=== PATIENT | male | born 1995 | race Two or more races ===

== ENCOUNTER 2021-05-10 15:43 | Outpatient (REF) | payer OTHER, SELFPAY | END 2021-05-10 15:44 | disposition home or self-care (01) | LOC: HO.LAB 15:43 | PROVIDERS: Visit Provider Internal Medicine | DX: Z20.822 Contact with and (suspected) exposure to COVID-19 (principal) | CPT/HCPCS: C9803; U0003; U0005 ==

== ENCOUNTER 2023-04-21 13:50 | Emergency (ER) | payer OTHER, SELFPAY ==
[2023-04-21 14:21] VITALS: BP 118/76; PULSE 73; RESP 18; TEMP 37.2; O2SAT 100; BMI 23.6
--- NOTE | 2023-04-21 14:24 | ED.EYEPROB ---
HPI - Eye Problem General Chief complaint: Eye Problems Stated complaint: r eye swollen Time Seen by Provider: 04/21/23 14:23 Source: patient Mode of arrival: ambulatory Limitations: no limitations History of Present Illness HPI Narrative: 27-year-old male presents to the ER for evaluation of right upper eyelid pain and swelling, worsening for the last 3 days. He states initially it felt like some irritation and something may be in the eye, last night he started with swollen right upper eyelid. He woke up today with some drainage and increased swelling of the eyelid. He reports some blurry vision when he had the discharge in the eye. No eye pain. He is not diabetic. He does not wear any glasses or contacts. chief complaint: eye redness and other (Upper eyelid pain and swelling) Onset (ago): day(s) Onset description: gradual Duration: constant Location: right eye Eye Symptoms: redness, discharge, blurry vision and other (Swelling) Place: home Mechanism: none Severity: moderate If Pain, Quality: aching Treatments Prior to Arrival: none Related Data Patient tetanus UTD: Yes Previous Rx's Medication Instructions Recorded erythromycin 5 mg/gram (0.5 %) eye 0.5 inch ophthalmic (eye) BID #3.5 04/21/23 ointment grams Allergies Allergy/AdvReac Type Severity Reaction Status Date / Time sulfamethoxazole Allergy Severe THRUSH, Unverified 04/27/20 16:30 [From BACTRIM] ANGIOEDEMA trimethoprim [From BACTRIM] Allergy Severe THRUSH, Unverified 04/27/20 16:30 ANGIOEDEMA cephalexin [From KEFLEX] AdvReac Intermediate TONGUE Unverified 04/27/20 16:30 SWELLING Review of Systems Review of Systems: Yes all other systems are reviewed and are negative [facility] Social History Social History Advance Directives: No Advance Directives Information Provided: Yes Physical Exam Vital Signs: Vital Signs: Last Vital Signs Temp 98.9 F 04/21/23 14:21 Pulse 73 04/21/23 14:21 Resp 18 04/21/23 14:21 BP 118/76 04/21/23 14:21 Pulse Ox 100 04/21/23 14:21 O2 Del Method Room Air 04/21/23 14:21 BMI result Body Mass Index 23.6 Appearance: Alert. Oriented X3. No acute distress. HEENT: Normocephalic, face is symmetric. Normal inspection of left eye and surrounding structures. Right upper eyelid with moderate swelling and erythema, visible internal hordeolum with inversion of the eye. Pupils equal out round and reactive to light. Extraocular muscles are intact CVS: Normal heart rate and rhythm. Pulses normal. Respiratory: No respiratory distress. Skin: Skin warm and dry. Normal skin color. Normal skin turgor. No rashes. Extremities: Normal inspection, normal range of motion x4, no joint swelling. Neuro: Oriented X 3. No motor deficit. No sensory deficit. Medical Decision Making Medical Decision Making [facility] Narrative: 27-year-old male presents to the ER for evaluation of right upper eyelid pain and swelling that has been progressing for the last 3 days. Exam is consistent with hordeolum. Will treat accordingly. Return precautions discussed. Post discharge home. Differential Diagnosis Differential Diagnoses: The differential diagnosis associated with the presentation includes External hordeolum, internal hordeolum, too lazy on, cellulitis Prescription Management I considered prescription management with: Pain Medication and Antibiotic Critical Care Time Critical Care Time Critical Care Time: No Discharge Plan Discharge Clinical Impression: Hordeolum Patient Disposition: Home, Self-Care Instructions: Mary (ED) Additional Instructions: use the prescribed antibiotic ointment 2 times per day for 1 week use warm compresses to the eye several times per day If you develop new or worsening symptoms call 911 or come back to the ER for further evaluation. Prescriptions: New erythromycin 5 mg/gram (0.5 %) ointment 0.5 inch ophthalmic (eye) BID Qty: 3.5 1RF Interventions: ED Discharge Assessment Last Done: 04/21/23 14:39
== END 2023-04-21 14:42 | disposition home or self-care (01) ==
LOC: HO.ED 14:32
PROVIDERS: Emergency Provider Emergency Medicine; PCP Internal Medicine
DX: H00.011 Hordeolum externum right upper eyelid (principal); H57.11 Ocular pain, right eye
CPT/HCPCS: 99282; 99283

== ENCOUNTER 2023-07-16 17:53 | Emergency (ER) | payer OTHER, SELFPAY ==
--- NOTE | ~2023-07-16 | CT_ITS ---
EXAMINATION: CT CHEST WITHOUT CONTRAST CLINICAL INFORMATION: Epigastric pain, chest lump. COMPARISON: Chest radiograph 09/15/2010. TECHNIQUE: Multidetector volumetric CT imaging of the chest was done. Axial MIP volume rendering provided. Sagittal and coronal reformatted images were obtained. This CT examination was performed using dose optimization techniques as appropriate, variously including the following: *Automated exposure control *Adjustment of mA and/or kV according to patient size (this includes techniques or standardized protocols for targeted exams where dose is matched to indication/reason for exam; i.e. extremities or head) *Use of iterative reconstruction technique DLP: 214 mGy-cm FINDINGS: LUNGS: No focal consolidation or significant groundglass disease. Central airways are patent. Small calcified granuloma in the inferior right upper lobe (5:235). MEDIASTINUM: Residual thymic tissue. Normal heart size. No pericardial effusion. No mediastinal lymphadenopathy. Evaluation of the hilar structures is limited in the absence of IV contrast. Normal appearance of the thyroid gland. CORONARY ARTERY CALCIFICATION: None visualized on this study. PLEURA: No pleural effusion or pneumothorax. AXILLA: Mild symmetric gynecomastia. Fairly symmetric, likely reactive bilateral axillary lymph nodes measuring up to 1.2 cm. UPPER ABDOMEN: Nonspecific gastric distention with heterogeneous debris. OSSEOUS STRUCTURES: Vertebra plana at T4, uncertain etiology with no surrounding fat stranding or hematoma, new compared to a prior chest radiograph from 09/15/2010. CT/CT chest wo IV con IMPRESSION: 1. No focal consolidation or significant groundglass disease. 2. Nonspecific gastric distention with heterogeneous debris; differential considerations include postprandial state, gastro bezoar, gastroparesis or gastric outlet obstruction. 3. Vertebra plana at T4, uncertain etiology with no surrounding fat stranding or hematoma, new compared to a prior chest radiograph from 09/15/2010. 4. Trace bilateral symmetric gynecomastia.
[2023-07-16 18:38] VITALS: BP 126/81; PULSE 70; RESP 18; TEMP 36.9; O2SAT 100; BMI 24.0
--- NOTE | 2023-07-16 18:42 | ED.GENADULT ---
HPI - General Adult General Chief complaint: General Medical Stated complaint: lump in the middle of chest Time Seen by Provider: 07/16/23 19:42 Source: patient Mode of arrival: ambulatory Limitations: no limitations History of Present Illness HPI narrative: Patient is a 27-year-old male with history of asthma presenting to the emergency department with complaint of a lump to his diaphragm/lower sternum which he noted yesterday. Feels he notices it more with inspiration. He reports recent sore throat which has improved, denies cough. Denies fever/chills/body aches. Denies any night sweats or unintentional weight loss. Reports that he does smoke marijuana regularly. He denies fall or other injury to the area. MD complaint: sternal mass Onset (ago): day(s) Location: chest Radiation: non-radiation Severity: mild Quality: dull Pain Consistency: intermittent Relieving factors: none Exacerbating factors: none Associated symptoms: denies other symptoms Treatments prior to arrival: none Related Data Previous Rx's Medication Instructions Recorded erythromycin 5 mg/gram (0.5 %) eye 0.5 inch ophthalmic (eye) BID #3.5 04/21/23 ointment grams Allergies Allergy/AdvReac Type Severity Reaction Status Date / Time sulfamethoxazole Allergy Severe THRUSH, Verified 07/16/23 18:41 [From BACTRIM] ANGIOEDEMA trimethoprim [From BACTRIM] Allergy Severe THRUSH, Verified 07/16/23 18:41 ANGIOEDEMA cephalexin [From KEFLEX] AdvReac Intermediate TONGUE Verified 07/16/23 18:41 SWELLING Review of Systems Review of Systems: As per HPI. Yes all other systems are reviewed and are negative Constitutional: Constitutional: Reports as per HPI [facility] Social History Social History Advance Directives: No Advance Directives Information Provided: No Physical Exam ED Vital Signs: Vital Signs - 24 hr 07/16/23 18:38 07/16/23 21:36 Temperature 98.5 F Pulse Rate 70 68 Respiratory Rate 18 18 Blood Pressure 126/81 119/67 Pulse Oximetry 100 98 Oxygen Delivery Method Room Air Room Air BMI result Body Mass Index 24.0 Vital signs have been reviewed and appear to be correct. Blood pressure normal. Heart rate normal. Respiratory rate normal. Temperature normal. Oxygen saturation normal. Const General: cooperative, healthy appearing and no acute distress Orientation/consciousness: oriented to person, oriented to place, oriented to time and patient oriented x3 Limitations: no limitations HENMT Head: Yes normocephalic and Yes atraumatic Ears: external ears normal General nose exam: Normal external nose present Face and sinus: Yes face symmetric Mouth: oropharynx normal and moist mucous membranes Throat: Yes uvula midline Eyes Pupils: Equal, round and reactive pupils present Neck Neck: Yes normal visual inspection and Yes supple Lymphatic: no lymphadenopathy noted Chest Other: Prominent xyphoid process noted, no mass appreciated on exam, area nontender Chest palpation & inspection: normal inspection of the chest and normal palpation of entire chest wall Breast/axilla palpation: no axillary lymphadenopathy Resp Effort & Inspection: normal respiratory effort and able to speak in complete sentences Auscultation: clear to auscultation bilaterally Cardio Rate: regular rate Rhythm: regular rhythm Heart sounds: S1 normal heart sound present and S2 normal heart sound present GI Palpation (GI): Soft to palpation and nontender Auscultation: normoactive bowel sounds General: Yes no CVA tenderness Back/Spine/Pelvis Back: no CVA tenderness Skin General skin exam: elasticity normal and turgor normal Neuro General: oriented to person, oriented to place, oriented to time, patient oriented x3, moves all extremities, no focal motor deficits and CN's II-XI intact bilaterally Cranial nerves: Yes Equal, round and reactive pupils present Cognition (Neuro): normal cognition Extrem General: Yes full ROM, Yes no pedal edema and Yes no calf tenderness Psych Mental Status: mental status grossly normal Affect: normal affect Thought process: Normal thought process present Course Course Course Narrative: This is an RME: Additional HPI, ROS, PE not included below will be deferred to primary provider. This is a 27-year-old male presenting to the emergency department for evaluate wish in of lump in his epigastric area, he noticed this yesterday. No injury or trauma. Plan: Medical Decision Making Medical Decision Making MDM Narrative: Patient is a 27-year-old male with history of asthma presenting to the emergency department with complaint of a lump to his diaphragm/lower sternum which he noted yesterday. On exam patient is awake, A+Ox3, VS WNL, afebrile, normal neurological exam without focal deficits, physical exam findings as above. Given reported symptoms and physical exam findings, initial differential includes sternal mass, abscess, lymphadenopathy. Labs notable for leukopenia with mild anemia. Monospot negative. CT notable for nonspecific gastric distention, vertebra plana at T4, new from 2010. Patient states he ate immediately prior to coming in to the ED. My interpretation is in agreement with the radiologist's interpretation. Patient updated on results. Will refer to heme/onc for further evaluation of abnormal labs and symptoms. Instructed patient to follow up with primary care provider as well. Return precautions discussed at bedside. Patient verbalized understanding of and agreement with plan. Differential Diagnosis Differential Diagnoses: The differential diagnosis associated with the presentation includes As per [facility]. Lab Data [facility] Lab Attestation statement: I reviewed the patient's lab results. As per [facility] 07/16/23 19:39 07/16/23 19:39 Labs: Lab Results 07/16/23 07/16/23 Range/Units 19:39 21:42 WBC 4.1 L (4.8-10.8) X10*3/uL RBC 4.97 (4.60-5.80) X10*6/uL Hgb 13.0 L (14.0-18.0) g/dl Hct 41.5 L (42.0-52.0) % MCV 83.5 (80.0-98.0) fL MCH 26.2 L (27.0-33.0) pg MCHC 31.3 (31.0-36.0) g/dl RDW 14.6 (11.0-16.0) % Plt Count 237 (160-400) X10*3/uL MPV 10.3 (9.4-12.4) fL Immature Gran % (Auto) 0.2 (0.0-0.4) % Neut % (Auto) 32.9 L (45-73) % Lymph % (Auto) 53.8 H (20-40) % Perkins % (Auto) 11.2 H (2-11) % Eos % (Auto) 1.7 (0-4) % Baso % (Auto) 0.2 (0-2) % Lymph # (Auto) 2.2 (1.2-4.9) X10*3/uL Perkins # (Auto) 0.5 (0.1-1.2) X10*3/uL Eos # (Auto) 0.1 (0.0-0.4) X10*3/uL Baso # (Auto) 0.0 (0.0-0.2) X10*3/uL Abs Immat Gran (auto) 0.01 (0.00-0.03) X10*3/uL Absolute Neuts (auto) 1.3 L (2.0-8.3) x10*3/uL Absolute Nucleated RBC 0.000 (0.0-0.012) X10*3/uL Nucleated RBC % (auto) 0.0 (0.0-0.2) /100WBC Smear Tech's Comments VERIFIED Sodium 141 (135-145) mmol/L Potassium 3.7 (3.3-5.1) mmol/L Chloride 104 (96-108) mmol/L Carbon Dioxide 30 H (22-29) mmol/L Anion Gap 11 L (12-20) BUN 11 (9-16) mg/dL Creatinine 0.91 (0.5-1.4) mg/dL Estim Creat Clear Calc 127.0 Estimated GFR > 60 Random Glucose 73 (60-115) mg/dL Calcium 9.2 (8.4-10.2) mg/dL Total Bilirubin 0.2 (0.0-1.0) mg/dL Direct Bilirubin < 0.2 (0.0-0.5) mg/dL AST 19 (5-37) U/L ALT 13 (0-40) U/L Alkaline Phosphatase 68 (39-117) U/L Total Protein 7.9 (6.5-8.0) g/dL Albumin 3.9 (3.5-5.0) g/dL Monoscreen Negative (Negative) Independent Interpretation I performed an independent interpretation of an: CT Scan Interpretation: No evidence of mass in area of concern Radiology Impression Discussion of test interpretation with radiology: I have reviewed the radiologist's reading. Radiologist Impression: CT/CT chest wo IV con IMPRESSION: 1. No focal consolidation or significant groundglass disease. 2. Nonspecific gastric distention with heterogeneous debris; differential considerations include postprandial state, gastro bezoar, gastroparesis or gastric outlet obstruction. 3. Vertebra plana at T4, uncertain etiology with no surrounding fat stranding or hematoma, new compared to a prior chest radiograph from 09/15/2010. 4. Trace bilateral symmetric gynecomastia. External Record Review External record reviewed: Inpatient record, Office record and Outpatient record Discharge Plan Discharge Clinical Impression: Leukopenia Patient Disposition: Home, Self-Care Additional Instructions: You were evaluated in the emergency department today for concern of a lump to your chest. Your CT scan did not show any evidence of a mass. Your white blood cell count today was low, as well as your neutrophil count. You are being referred to the flight operations specialist/oncologist for further evaluation of your labs/symptoms. Please call their office to schedule an appointment. Return to the emergency department if you develop fever, chest pain, difficulty breathing, unexplained weight loss, night sweats, or any other concerning symptoms. Prescriptions: No Action erythromycin 5 mg/gram (0.5 %) ointment 0.5 inch ophthalmic (eye) BID Qty: 3.5 1RF Referrals: Yuli Gould MD [Physician] -
[2023-07-16 19:45] LABS: Basophils Percent Auto 0.2 % (0-2); Eosinophils Absolute Auto 0.1 X10*3/uL (0.0-0.4); Eosinophils Percent Auto 1.7 % (0-4); Hematocrit 41.5 % (42.0-52.0); Imm Gran Abs Auto 0.01 X10*3/uL (0.00-0.03); Imm Gran Pct Auto 0.2 % (0.0-0.4); Lymphocytes Absolute Auto 2.2 X10*3/uL (1.2-4.9); Lymphocytes Percent Auto 53.8 % (20-40); MANUAL DIFF FLAG SCAN; Mean Corpuscular HGB Conc 31.3 g/dl (31.0-36.0); Mean Corpuscular Hemoglobin 26.2 pg (27.0-33.0); Mean Corpuscular Volume 83.5 fL (80.0-98.0); Mean Platelet Volume 10.3 fL (9.4-12.4); Monocytes Absolute Auto 0.5 X10*3/uL (0.1-1.2); Monocytes Percent Auto 11.2 % (2-11); Neutrophils Absolute Auto 1.3 x10*3/uL (2.0-8.3); Neutrophils Percent Auto 32.9 % (45-73); Platelet Count 237 X10*3/uL (160-400); Red Blood Count 4.97 X10*6/uL (4.60-5.80); Red Cell Distribution Width 14.6 % (11.0-16.0); SCAN SMEAR FLAG 1; White Blood Count 4.1 X10*3/uL (4.8-10.8)
[2023-07-16 19:59] LABS: Alanine Aminotransferase 13 U/L (0-40); Albumin Level 3.9 g/dL (3.5-5.0); Alkaline Phosphatase 68 U/L (39-117); Anion Gap 11 (12-20); Aspartate Amino Transferase 19 U/L (5-37); Bilirubin Direct < 0.2 mg/dL (0.0-0.5); Bilirubin Total 0.2 mg/dL (0.0-1.0); Blood Urea Nitrogen 11 mg/dL (9-16); Calcium 9.2 mg/dL (8.4-10.2); Carbon Dioxide 30 mmol/L (22-29); Chloride 104 mmol/L (96-108); Estimated Glomerular Filt Rate > 60; Glucose Random 73 mg/dL (60-115); Potassium 3.7 mmol/L (3.3-5.1); Sodium 141 mmol/L (135-145); Total Protein 7.9 g/dL (6.5-8.0)
[2023-07-16 20:04] LABS: SLIDE REVIEW VERIFIED
[2023-07-16 21:36] VITALS: BP 119/67; PULSE 68; RESP 18; O2SAT 98
[2023-07-16 22:16] LABS: Monotest Negative (Negative)
[2023-07-16 22:40] VITALS: BP 124/87; PULSE 79; RESP 16; TEMP 36.7; O2SAT 98
== END 2023-07-16 22:41 | disposition home or self-care (01) ==
PROVIDERS: Physician Assistant Medical; Registered Nurse Emergency; Emergency Provider Emergency Medicine
DX: D72.819 Decreased white blood cell count, unspecified (principal); J45.909 Unspecified asthma, uncomplicated; F12.90 Cannabis use, unspecified, uncomplicated
CPT/HCPCS: 36415; 71250; 80048; 80076; 85025; 86308; 99283; 99284

== ENCOUNTER → 2023-07-18 13:30 | Outpatient (BNV) | payer OTHER, SELFPAY | PROVIDERS: Visit Provider Internal Medicine | DX: D72.819 Decreased white blood cell count, unspecified (principal) | CPT/HCPCS: 99203 ==